=== PATIENT | male | born 1965 | race Caucasian/White ===

== ENCOUNTER → 2024-05-13 07:57 | Outpatient (REF) | payer BC, SELFPAY | LOC: RCS 07:57 | PROVIDERS: ATTENDING PHYSICIAN Nurse Practitioner Family | DX: R00.0 Tachycardia, unspecified (principal) | CPT/HCPCS: 93005 ==

== ENCOUNTER → 2024-06-23 15:32 | Outpatient (REF) | payer BC, SELFPAY | LOC: RCS 15:32 | PROVIDERS: ATTENDING PHYSICIAN Nurse Practitioner Family | DX: R00.1 Bradycardia, unspecified (principal); Z82.49 Family history of ischemic heart disease and other diseases of the circulatory system | CPT/HCPCS: 93306 ==